=== PATIENT | female | born 1980 | race Caucasian/White ===

== ENCOUNTER → 2020-10-06 10:09 | Outpatient (CLI) | payer OTHER, SELFPAY ==
[2020-10-06 10:41] LABS: Add Manual Diff / Slide Review NO; Basophils Absolute Auto 0 /uL (0-100); Basophils Percent Auto 0.7 % (0-2); Eosinophils Absolute Auto 100 /uL (0-450); Hematocrit 42.7 % (36-46); Hemoglobin 14.5 g/dL (12.0-16.0); Lymphocytes Absolute Auto 2000 /uL (1100-4500); Lymphocytes Percent Auto 29.2 % (25-40); Mean Corpuscular Hemoglobin 30.7 PG (26-34); Mean Corpuscular Volume 90.3 fL (80-100); Monocytes Absolute Auto 600 /uL (0-900); Monocytes Percent Auto 8.2 % (3-14); Neutrophils Absolute Auto 4100 /uL (1500-7000); Neutrophils Percent Auto 60.9 % (50-75); Platelet Count 264 X10^3/uL (150-400); Red Blood Cell Count 4.73 X10^6/uL (4.0-5.2); Red Cell Distribution Width 12.8 % (11.6-14.8); White Blood Cell Count 6.8 X10^3/uL (4.5-11.0)
[2020-10-06 10:47] LABS: Hemoglobin A1C% w Est Avg Glu 6.3 % (4.0-6.0)
[2020-10-06 11:02] LABS: Alanine Aminotransferase 26 IU/L (<35); Albumin 4.4 g/dL (3.5-5.0); Albumin Globulin Ratio 1.2 (1.0-2.8); Alkaline Phosphatase 79 U/L (38-126); Aspartate Aminotransferase 24 IU/L (14-36); Bilirubin Total 0.6 mg/dL (0.2-1.3); Blood Urea Nitrogen 13 mg/dL (7-17); Calcium 10.2 mg/dL (8.4-10.2); Carbon Dioxide 27 mmol/L (22-32); Chloride 104 mmol/L (98-107); Cholesterol 233 mg/dL (140-199); Estimated Glomerular Filt Rate > 60.0 mL/min (>60); Globulin 3.6 g/dL (1.7-4.1); Glucose 122 mg/dL (70-100); HDL Cholesterol 55 mg/dL (40-60); HEMOLYSIS < 15 (0-50); LDL Cholesterol Calculated 135 mg/dL (<100); Potassium 4.3 mmol/L (3.4-5.1); Sodium 137 mmol/L (137-145); Triglycerides 217 mg/dL (35-150)
[2020-10-06 11:42] LABS: Vitamin B12 435 pg/mL (239-931)
[2020-10-06 12:09] LABS: Creatinine Urine Random 53.6 mg/dL
[2020-10-06 12:15] LABS: Microalbumin Urine Random < 0.6 mg/dL (0-1.6)
== END ==
PROVIDERS: PCP Family Medicine; Referring Provider Family Medicine; Visit Provider Family Medicine
DX: E11.9 Type 2 diabetes mellitus without complications (principal); E78.5 Hyperlipidemia, unspecified; F41.9 Anxiety disorder, unspecified; I10 Essential (primary) hypertension
CPT/HCPCS: 36415; 80053; 80061; 82043; 82570; 82607; 83036; 85025

== ENCOUNTER 2020-10-17 13:09 | Emergency (ER) | payer OTHER, SELFPAY ==
--- NOTE | 2020-10-17 13:28 | ED.CHESTPAIN ---
HPI - Chest Pain General Chief Complaint: Anxiety Stated Complaint: Anxiety, heart racing x2 weeks Time Seen by Provider: 10/17/20 13:10 Source: patient Mode of arrival: Ambulatory Limitations: no limitations History of Present Illness HPI narrative: 40-year-old female former smoker with history of hypertension presents with a chief complaint of rapid, pounding pulse for the past 2 weeks. She states that she does not have any pain, shortness of breath or dizziness. She states she just feels ?weird? and with minimal exertion her heart really begins pounding. The day the symptoms started she was started on a new blood pressure medication (amlodipine). She states that a few days ago she accidentally missed a dose of the amlodipine and she felt much better for that day. The following day she resumed her amlodipine and the symptoms started again. She denies any alcohol, street drugs. She denies nicotine or significant caffeine. She denies any other medication change. She denies recent travel, history of blood clot or cancer. MD complaint: other Onset (ago): day(s) Duration: constant Onset: during rest Pain radiation: none Relieving factors: nothing Related Data Home Medications Medication Instructions Recorded Confirmed hydroxyzine HCl 25 mg tablet 25 mg PO BEDTIME 10/06/20 10/06/20 levonorgestrel 20 mcg/24 hours (6 INTRAUTERINE 10/06/20 10/06/20 yrs) 52 mg intrauterine device Previous Rx's Medication Instructions Recorded amlodipine 2.5 mg tablet See Rx Instructions .ROUTE 10/06/20 .COMPLEX #90 tab bupropion HCl 150 mg 24 hr tablet, 150 mg PO QAM #90 tab 10/06/20 extended release metformin 500 mg tablet 500 mg PO BID #180 tab 10/06/20 omeprazole 20 mg capsule,delayed See Rx Instructions .ROUTE 10/06/20 release .COMPLEX #90 cap Allergies Allergy/AdvReac Type Severity Reaction Status Date / Time Penicillins Allergy Unknown Verified 10/06/20 09:32 Review of Systems Constitutional Constitutional: Denies chills, Denies fatigue, Denies fever(s), Denies frequent falls, Denies lethargy and Denies weakness Eyes Eyes: Denies change in vision, Denies eye discharge, Denies irritation and Denies loss of vision ENT Ears, Nose, Mouth, and Throat: Denies change in voice, Denies dizziness, Denies neck pain, Denies sore throat and Denies throat swelling Cardiovascular Cardiovascular: Denies chest pain, Reports rapid heart rate, Denies irregular heart rhythm, Denies lightheadedness, Denies palpitations, Denies dyspnea, Denies dyspnea on exertion and Denies orthopnea Respiratory Respiratory: Denies cough, Denies dyspnea, Denies dyspnea on exertion and Denies wheezing Gastrointestinal Gastrointestinal: Denies abdominal pain, Denies change in bowel habits, Denies diarrhea, Denies nausea and Denies vomiting Musculoskeletal Musculoskeletal: Denies neck pain and Denies numbness Integumentary/Breasts Skin/Breast: Denies pruritus, Denies erythema, Denies rash and Denies wounds Neurologic Neurologic: Denies behavioral changes, Denies confusion, Denies dizziness, Denies frequent falls, Denies loss of vision, Denies numbness and Denies weakness Psychiatric Psychiatric: Denies anxiety, Denies behavioral changes, Denies confusion, Denies depression, Denies homicidal ideation and Denies suicidal ideation Endocrine Endocrine: Denies fatigue, Denies flushing and Denies palpitations Hematologic/Lymphatic Hematologic/Lymphatic: Denies easy bruising Allergic/Immunologic Allergic/Immunologic: Denies urticaria, Denies throat swelling and Denies wheezing Patient History Medical History Acne Anxiety (~2019) Chicken pox Fractures (~2000) Hyperlipidemia Hypertension (~2019) Type 2 diabetes mellitus Surgical History Anesthesia History of surgery (~2000) Family History Father Diabetes mellitus Mother Cancer Grandfather Glaucoma Social History Smoking Status: Former smoker Tobacco: How many years used: 19 alcohol intake: current (1 glass wine every 6 months ) substance use type: does not use Smoking Status: Former smoker (06/14/20) Exam Narrative Exam Narrative: GENERAL: [40] year old patient appears stated age. Well-nourished, well-developed patient, in mild distress. HEAD: Atraumatic. Normocephalic. EYES: Pupils equal round and reactive. Extraocular motions intact. No scleral icterus. No injection or drainage. ENT: Nose without bleeding, purulent drainage. Throat without erythema, tonsillar hypertrophy or exudate. Airway patent. NECK: Trachea midline. Non tender CARDIOVASCULAR: Tachycardic but regular rhythm without murmurs, gallops, or rubs. RESPIRATORY: Clear to auscultation. Breath sounds equal bilaterally. No wheezes, rales, or rhonchi. GASTROINTESTINAL: Abdomen soft, non-tender, nondistended. EXTREMITIES: No edema or joint tenderness. BACK: Nontender without deformity or crepitance. No flank tenderness. NEURO: AOx3. SKIN: No rash or erythema of visible areas Initial Vital Signs Initial Vital Signs: Vital Signs Temperature 98.9 F 10/17/20 13:46 Pulse Rate 110 H 10/17/20 13:46 Respiratory Rate 18 10/17/20 13:46 Blood Pressure 189/106 H 10/17/20 13:46 Pulse Oximetry 99 10/17/20 13:46 Course Orders Ordered: ED Orders 10/17/20 13:46 Complete Blood Count AUTO DIFF Stat Comprehensive Metabolic Panel Stat D Dimer Stat Free T4, Direct Thyroxine Stat Thyroid Stimulating Hormone Stat Troponin & CK Cardiac Panel Stat 10/17/20 13:51 EKG-12 Lead Stat 10/17/20 14:37 Urine Drug Screen, Rapid Stat Discontinued Medications Lactated Ringer's (Lactated Ringers) 1,000 mls @ 1,000 mls/hr IV BOLUS ONE Stop: 10/17/20 14:34 Last Infusion: 10/17/20 15:07 Dose: 0 mls/hr Documented by: Admin: 10/17/20 13:52 Dose: 1,000 mls/hr Documented by: DARRELL Vital Signs Vital signs: Vital Signs - 8 hr 10/17/20 13:46 10/17/20 15:53 Temperature 98.9 F Pulse Rate 110 H 86 Respiratory Rate 18 15 Blood Pressure 189/106 H 149/86 H Pulse Oximetry 99 94 MDM - Chest Pain Lab Data Result diagrams: 10/17/20 13:46 10/17/20 13:46 Labs: Lab Results 10/17/20 10/17/20 10/17/20 Range/Units 13:46 13:46 13:46 WBC 9.0 (4.5-11.0) X10^3/uL RBC 4.90 (4.0-5.2) X10^6/uL Hgb 15.0 (12.0-16.0) g/dL Hct 44.0 (36-46) % MCV 89.8 (80-100) fL MCH 30.7 (26-34) PG MCHC 34.2 (30-36) % RDW 12.8 (11.6-14.8) % Plt Count 281 (150-400) X10^3/uL Neut % (Auto) 63.8 (50-75) % Lymph % (Auto) 26.3 (25-40) % [place] % (Auto) 8.0 (3-14) % Eos % (Auto) 1.0 L (2-4) % Baso % (Auto) 0.9 (0-2) % Neut # (Auto) 5800 (8190-9987) /uL Lymph # (Auto) 2400 (7595-8409) /uL [place] # (Auto) 700 (0-900) /uL Eos # (Auto) 100 (0-450) /uL Baso # (Auto) 100 (0-100) /uL D-Dimer < 200 (<230) ng/mL Sodium 140 (137-145) mmol/L Potassium 3.8 (3.4-5.1) mmol/L Chloride 104 (98-107) mmol/L Carbon Dioxide 28 (22-32) mmol/L BUN 12 (7-17) mg/dL Creatinine 0.68 (0.52-1.04) mg/dL Estimated GFR > 60.0 (>60) mL/min BUN/Creatinine Ratio 17.6 (6-22) Glucose 125 H (70-100) mg/dL Calcium 9.9 (8.4-10.2) mg/dL Total Bilirubin 0.4 (0.2-1.3) mg/dL AST 23 (14-36) IU/L ALT 26 (<35) IU/L Alkaline Phosphatase 86 (38-126) U/L Total Creatine Kinase 47 (30-135) U/L CK-MB (CK-2) TNP CK-MB (CK-2) Rel Index TNP Troponin I < 0.012 (0.01-0.034) ng/mL Total Protein 8.5 H (6.3-8.2) g/dL Albumin 4.6 (3.5-5.0) g/dL Globulin 3.9 (1.7-4.1) g/dL Albumin/Globulin Ratio 1.2 (1.0-2.8) TSH (0.47-4.68) uIU/mL Free T4 (0.78-2.19) ng/dL U Opiates 300ng/mL cut (Negative) Ur Oxycodone Screen (Negative) Urine Methadone Screen (Negative) Ur Barbiturates Screen (Negative) U Tricyclic Antidepress (Negative) Ur Phencyclidine Scrn (Negative) Ur Amphetamines Screen (Negative) U Methamphetamines Scrn (Negative) Ur MDMA Scrn (Ecstasy) (Negative) U Benzodiazepines Scrn (Negative) Urine Cocaine Screen (Negative) U Marijuana (THC) Screen (Negative) 10/17/20 10/17/20 Range/Units 13:46 14:37 WBC (4.5-11.0) X10^3/uL RBC (4.0-5.2) X10^6/uL Hgb (12.0-16.0) g/dL Hct (36-46) % MCV (80-100) fL MCH (26-34) PG MCHC (30-36) % RDW (11.6-14.8) % Plt Count (150-400) X10^3/uL Neut % (Auto) (50-75) % Lymph % (Auto) (25-40) % [place] % (Auto) (3-14) % Eos % (Auto) (2-4) % Baso % (Auto) (0-2) % Neut # (Auto) (4189-0902) /uL Lymph # (Auto) (7658-8016) /uL [place] # (Auto) (0-900) /uL Eos # (Auto) (0-450) /uL Baso # (Auto) (0-100) /uL D-Dimer (<230) ng/mL Sodium (137-145) mmol/L Potassium (3.4-5.1) mmol/L Chloride (98-107) mmol/L Carbon Dioxide (22-32) mmol/L BUN (7-17) mg/dL Creatinine (0.52-1.04) mg/dL Estimated GFR (>60) mL/min BUN/Creatinine Ratio (6-22) Glucose (70-100) mg/dL Calcium (8.4-10.2) mg/dL Total Bilirubin (0.2-1.3) mg/dL AST (14-36) IU/L ALT (<35) IU/L Alkaline Phosphatase (38-126) U/L Total Creatine Kinase (30-135) U/L CK-MB (CK-2) CK-MB (CK-2) Rel Index Troponin I (0.01-0.034) ng/mL Total Protein (6.3-8.2) g/dL Albumin (3.5-5.0) g/dL Globulin (1.7-4.1) g/dL Albumin/Globulin Ratio (1.0-2.8) TSH 2.33 (0.47-4.68) uIU/mL Free T4 1.22 (0.78-2.19) ng/dL U Opiates 300ng/mL cut Negative (Negative) Ur Oxycodone Screen Negative (Negative) Urine Methadone Screen Negative (Negative) Ur Barbiturates Screen Negative (Negative) U Tricyclic Antidepress Negative (Negative) Ur Phencyclidine Scrn Negative (Negative) Ur Amphetamines Screen Negative (Negative) U Methamphetamines Scrn Negative (Negative) Ur MDMA Scrn (Ecstasy) Negative (Negative) U Benzodiazepines Scrn Negative (Negative) Urine Cocaine Screen Negative (Negative) U Marijuana (THC) Screen Negative (Negative) Point of Care Testing Test Results Negative Urine Dip Bedside Urine Glucose Negative Bedside Urine Bilirubin - Negative Bedside Urine Ketone - Negative Urine Specific [place] 1.015 Bedside Urine pH 6.0 Bedside Urine Protein - Negative Bedside Urine Urobilinogen - Negative Bedside Urine Nitrite - Negative Bedside Urine Leukocytes - Negative Esterase Discharge Plan Departure Patient Disposition: Home Clinical Impression: Heart palpitations Instructions: DI for Palpitations Activity Restrictions/Additional Instructions: *You have been diagnosed with [palpitations, possibly due to your amlodipine] *What to do: * stop taking the amlodipine, continue taking your other medications. *Follow up with your primary care provider in 2-3 days, call for an appointment. Let them know you were seen in the Emergency Department and that we ask that you be seen in follow up *Return to ER if you should have any new, worsening or concerning symptoms Prescriptions: No Action amlodipine 2.5 mg tablet See Rx Instructions .ROUTE .COMPLEX Qty: 90 RF: 2 omeprazole 20 mg capsule,delayed release(DR/EC) See Rx Instructions .ROUTE .COMPLEX Qty: 90 RF: 2 hydroxyzine HCl 25 mg tablet 25 mg PO BEDTIME RF: 0 Mirena 20 mcg/24 hours (6 yrs) 52 mg intrauterine device intrauterine RF: 0 bupropion HCl 150 mg tablet extended release 24 hr 150 mg PO QAM Qty: 90 RF: 1 metformin 500 mg tablet 500 mg PO BID Qty: 180 RF: 3 Referrals: Woody Antonio, [Primary Care Provider] -
[2020-10-17 13:46] VITALS: BP 189/106; PULSE 110; RESP 18; TEMP 37.2; O2SAT 99; BMI 45.1
[2020-10-17] MEDS: LACTATED RINGERS 1,000 ML 1000 ML IV (13:52)
[2020-10-17 13:55] VITALS: BMI 45.1
[2020-10-17 13:55] LABS: Add Manual Diff / Slide Review NO; Basophils Absolute Auto 100 /uL (0-100); Basophils Percent Auto 0.9 % (0-2); Eosinophils Absolute Auto 100 /uL (0-450); Lymphocytes Absolute Auto 2400 /uL (1100-4500); Lymphocytes Percent Auto 26.3 % (25-40); Mean Corpuscular HGB Conc 34.2 % (30-36); Mean Corpuscular Hemoglobin 30.7 PG (26-34); Mean Corpuscular Volume 89.8 fL (80-100); Monocytes Absolute Auto 700 /uL (0-900); Neutrophils Absolute Auto 5800 /uL (1500-7000); Neutrophils Percent Auto 63.8 % (50-75); Platelet Count 281 X10^3/uL (150-400); Red Cell Distribution Width 12.8 % (11.6-14.8)
[2020-10-17 14:08] LABS: Alanine Aminotransferase 26 IU/L (<35); Albumin 4.6 g/dL (3.5-5.0); Albumin Globulin Ratio 1.2 (1.0-2.8); Alkaline Phosphatase 86 U/L (38-126); Aspartate Aminotransferase 23 IU/L (14-36); BUN Creatinine Ratio 17.6 (6-22); Bilirubin Total 0.4 mg/dL (0.2-1.3); Blood Urea Nitrogen 12 mg/dL (7-17); Calcium 9.9 mg/dL (8.4-10.2); Carbon Dioxide 28 mmol/L (22-32); Chloride 104 mmol/L (98-107); Creatine Kinase 47 U/L (30-135); Estimated Glomerular Filt Rate > 60.0 mL/min (>60); Globulin 3.9 g/dL (1.7-4.1); Glucose 125 mg/dL (70-100); HEMOLYSIS 16 (0-50); Potassium 3.8 mmol/L (3.4-5.1); Sodium 140 mmol/L (137-145); Total Protein 8.5 g/dL (6.3-8.2)
[2020-10-17 14:10] LABS: D Dimer < 200 ng/mL (<230)
[2020-10-17 14:19] LABS: Troponin I < 0.012 ng/mL (0.01-0.034)
[2020-10-17 14:52] LABS: UR Morphine/Opiate cutoff 300 Negative (Negative); Ur Creatinine Normal (Normal); Ur Specific Gravity Normal (Normal); Urine Amphetamines Negative (Negative); Urine Barbiturates Negative (Negative); Urine Benzodiazepines Negative (Negative); Urine Cocaine Negative (Negative); Urine MDMA Negative (Negative); Urine Methadone Negative (Negative); Urine Methamphetamines Negative (Negative); Urine Oxycodone Negative (Negative); Urine Phencyclidine Negative (Negative); Urine Tetrahydrocannabinol Negative (Negative); Urine Tricyclic Antidepressant Negative (Negative); Urine pH Normal (Normal)
[2020-10-17 15:26] LABS: Free T4, Direct Thyroxine 1.22 ng/dL (0.78-2.19)
[2020-10-17 15:40] LABS: Thyroid Stimulating Hormone 2.33 uIU/mL (0.47-4.68)
[2020-10-17 15:53] VITALS: BP 149/86; PULSE 86; RESP 15; O2SAT 94
== END 2020-10-17 15:56 | disposition home or self-care (01) ==
PROVIDERS: Emergency Provider Emergency Medicine; PCP Family Medicine
DX: R00.2 Palpitations (principal); I10 Essential (primary) hypertension; Z87.891 Personal history of nicotine dependence
CPT/HCPCS: 36415; 80053; 80305; 81003; 81025; 82550; 84439; 84443; 84484; 85025; 85379; 93005; 96360; 99281; 99284

== ENCOUNTER 2021-07-15 18:04 | Emergency (ER) | payer OTHER, SELFPAY ==
[2021-07-15 18:10] VITALS: BP 225/100; PULSE 98; RESP 18; TEMP 36.9; O2SAT 99; BMI 48.4
--- NOTE | 2021-07-15 19:23 | ED.GENADULT ---
HPI - General Adult General Chief complaint: Eye Problems Stated complaint: SPOT ON LEFT EYE Time Seen by Provider: 07/15/21 19:05 Source: patient Mode of arrival: Ambulatory Limitations: no limitations History of Present Illness HPI narrative: Patient is a 41-year-old female who is here for evaluation of a dark spot on her left eye. She states she noticed it yesterday when she was watching TV. It has not changed since then. She went to an outside walk-in clinic who advised that she come to the emergency department for further evaluation. She does wear glasses while she is at work. She states she is supposed to wear these at all times but only occasionally does. No prior eye surgeries. States the dark spot does seem to be isolated to her left eye. This is very small. She states that does follow her visual sky when she looks up and down into the sides. She has no headache. No other eye symptoms. No pain in her eyes. No headache. No chest pain or palpitations. Related Data Home Medications Medication Instructions Recorded Confirmed levonorgestrel 20 mcg/24 hours (6 INTRAUTERINE 10/06/20 05/23/21 yrs) 52 mg intrauterine device (Mirena) hydroxyzine HCl 25 mg tablet 25 mg PO BEDTIME PRN 12/20/20 05/23/21 Previous Rx's Medication Instructions Recorded metformin 500 mg tablet 500 mg PO BID #180 tab 10/06/20 omeprazole 20 mg capsule,delayed See Rx Instructions .ROUTE 10/06/20 release .COMPLEX #90 cap glucometer #1 ea 11/01/20 metoprolol succinate 25 mg See Rx Instructions .ROUTE 12/15/20 tablet,extended release 24 hr .COMPLEX #90 tab clindamycin phosphate 1 % lotion 1 applic TOPICAL BID #60 ml 12/20/20 (Cleocin T) blood sugar diagnostic (FreeStyle See Rx Instructions .ROUTE 01/26/21 Lite Strips) .COMPLEX #300 strip tretinoin 0.025 % topical cream 1 applic TOPICAL BEDTIME #45 g 05/23/21 (Retin-A) lancets 28 gauge (FreeStyle See Rx Instructions .ROUTE 06/10/21 Lancets) .COMPLEX #300 ea Allergies Allergy/AdvReac Type Severity Reaction Status Date / Time Penicillins Allergy Unknown Verified 07/15/21 18:14 amlodipine AdvReac Severe Heart Verified 07/15/21 18:14 palpitations lisinopril AdvReac Severe cough Verified 07/15/21 18:14 Review of Systems Constitutional Constitutional: Reports as per HPI and Reports system reviewed and no additional complaints, except as documented Eyes Eyes: Reports as per HPI and Reports system reviewed and no additional complaints, except as documented ENT Ears, Nose, Mouth, and Throat: Reports system reviewed and no additional complaints, except as documented and Reports as per HPI Cardiovascular Cardiovascular: Reports system reviewed and no additional complaints, except as documented Respiratory Respiratory: Reports system reviewed and no additional complaints, except as documented Gastrointestinal Gastrointestinal: Reports system reviewed and no additional complaints, except as documented Integumentary/Breasts Skin/Breast: Reports system reviewed and no additional complaints, except as documented Neurologic Neurologic: Reports system reviewed and no additional complaints, except as documented and Reports as per HPI Hematologic/Lymphatic On Anticoagulants: No Patient History Medical History Acne Acne vulgaris Anxiety (~2019) Chicken pox Fractures (~2000) History of non anemic vitamin B12 deficiency Hyperlipidemia Hypertension (~2019) Type 2 diabetes mellitus Surgical History Anesthesia History of surgery (~2000) Family History Father Diabetes mellitus Mother Cancer Grandfather Glaucoma Social History Smoking Status: Former smoker Tobacco: How many years used: 19 alcohol intake: current (1 glass wine every 6 months ) substance use type: does not use Smoking Status: Former smoker alcohol intake frequency: holidays/special occasions only Substance Use Type: does not use Exam Initial Vital Signs Initial Vital Signs: Vital Signs Temperature 98.4 F 07/15/21 18:10 Pulse Rate 98 H 07/15/21 18:10 Respiratory Rate 18 07/15/21 18:10 Blood Pressure 225/100 H 07/15/21 18:10 Pulse Oximetry 99 07/15/21 18:10 Const General: cooperative, healthy appearing and comfortable [facility] Head: normal to inspection and normocephalic Ears: hearing grossly normal bilaterally Face and sinus: normal facial exam Mouth: oral mucosae normal Eyes General: appearance normal, both eyes and all related structures Visual Sky: normal visual sky by confrontation Alignment and Position: alignment normal Periorbital: periorbital findings normal Eyelids: eyelids normal Conjunctivae: conjunctivae normal Sclera: sclerae normal Pupils: PERRL EOM: EOM intact bilaterally Resp Effort & Inspection: normal respiratory effort Auscultation: clear to auscultation bilaterally Cardio Rate: regular rate Back/Spine/Pelvis Back: normal to inspection Neuro General: patient alert, patient awake, patient oriented x3 and moves all extremities Cranial Nerves: CN's II-XI intact bilaterally Cognition: normal cognition Extrem General: normal to inspection and capillary refill normal Psych Appearance: grossly normal Course Vital Signs Vital signs: Vital Signs - 8 hr 07/15/21 18:10 Temperature 98.4 F Pulse Rate 98 H Respiratory Rate 18 Blood Pressure 225/100 H Pulse Oximetry 99 Medical Decision Making MDM Narrative Medical decision making narrative: Patient's visual acuity is baseline for her. She noticed the spot in her left eye yesterday and has not changed since then. He does seem to be isolated to her left eye. Does follow her when she changes her visual field. She has no other neurologic symptoms. Low suspicion for retinal detachment. This could potentially be a vitreous detachment. Low suspicion for glaucoma based on her presentation today. There is no foreign body noted on the exam. Low suspicion for corneal abrasion. Visual acuity is noted. Plan will be is for her to contact a cytotechnologist/cytology supervisor/stone polisher hand on Sunday for dilated eye exam. I do not feel that this needs to be done emergently based on her presentation today. She was given strict return precautions and follow-up instructions. She expressed understanding and agreement. Discharge Plan Departure Patient Disposition: Home Clinical Impression: Vision disturbance, Hypertension Instructions: DI for Visual Field Disturbances Activity Restrictions/Additional Instructions: I recommend that on Sunday you contact either the ophthalmology department here at the hospital at the number provided below or a cytotechnologist/cytology supervisor of your choice. Return to the emergency department for any new or worsening symptoms like we discussed. Prescriptions: No Action omeprazole 20 mg capsule,delayed release(DR/EC) See Rx Instructions .ROUTE .COMPLEX Qty: 90 RF: 2 (DME) glucometer See Rx Instructions .Route .MEDSUPPLY Qty: 1 RF: 0 metoprolol succinate 25 mg tablet extended release 24 hr See Rx Instructions .ROUTE .COMPLEX Qty: 90 RF: 2 FreeStyle Lite Strips Strip See Rx Instructions .ROUTE .COMPLEX Qty: 300 RF: 3 lancets [FreeStyle Lancets] 28 gauge misc See Rx Instructions .ROUTE .COMPLEX Qty: 300 RF: 3 Mirena 20 mcg/24 hours (6 yrs) 52 mg intrauterine device intrauterine RF: 0 metformin 500 mg tablet 500 mg PO BID Qty: 180 RF: 3 hydroxyzine HCl 25 mg tablet 25 mg PO BEDTIME PRN (Reason: anxiety) RF: 0 tretinoin [Retin-A] 0.025 % cream 1 applic topical BEDTIME Qty: 45 RF: 3 clindamycin phosphate [Cleocin T] 1 % lotion 1 applic topical BID Qty: 60 RF: 1 Referrals: Marcin Castro MD [Physician] - Woody Antonio DO [Primary Care Provider] -
[2021-07-15 19:33] VITALS: BP 166/96; PULSE 97; RESP 20; O2SAT 98
== END 2021-07-15 19:35 | disposition home or self-care (01) ==
PROVIDERS: Emergency Provider Emergency Medicine; PCP Family Medicine
DX: H53.9 Unspecified visual disturbance (principal); I10 Essential (primary) hypertension
CPT/HCPCS: 99281

== ENCOUNTER → 2021-07-25 08:04 | Outpatient (CLI) | payer OTHER, SELFPAY ==
[2021-07-25 09:09] LABS: Hemoglobin A1C% w Est Avg Glu 6.9 % (4.0-6.0)
[2021-07-25 09:18] LABS: Alanine Aminotransferase 78 IU/L (<35); Albumin 4.3 g/dL (3.5-5.0); Albumin Globulin Ratio 1.4 (1.0-2.8); Alkaline Phosphatase 68 U/L (38-126); Aspartate Aminotransferase 49 IU/L (14-36); BUN Creatinine Ratio 25.4 (6-22); Bilirubin Total 0.7 mg/dL (0.2-1.3); Blood Urea Nitrogen 15 mg/dL (7-17); Calcium 9.6 mg/dL (8.4-10.2); Carbon Dioxide 26 mmol/L (22-32); Chloride 104 mmol/L (98-107); Estimated Glomerular Filt Rate > 60.0 mL/min (>60); Glucose 133 mg/dL (70-100); HEMOLYSIS < 15 (0-50); Potassium 4.5 mmol/L (3.4-5.1); Sodium 139 mmol/L (137-145); Total Protein 7.3 g/dL (6.3-8.2)
[2021-07-25 09:50] LABS: Cortisol AM (Before 10AM) 10.9 ug/dL (4.46-22.7)
[2021-07-25 09:51] LABS: TSH w/ Reflex to FT4 1.51 uIU/mL (0.47-4.68)
[2021-07-25 10:09] LABS: Vitamin B12 Reflex MMA if <400 > 1000 pg/mL (239-931)
== END ==
PROVIDERS: PCP Family Medicine; Referring Provider Family Medicine; Visit Provider Family Medicine
DX: R00.2 Palpitations (principal); Z86.39 Personal history of other endocrine, nutritional and metabolic disease; I10 Essential (primary) hypertension
CPT/HCPCS: 36415; 80053; 82533; 82607; 83036; 84443

== ENCOUNTER → 2021-08-04 17:59 | Outpatient (CLI) | payer OTHER, SELFPAY ==
--- NOTE | 2021-08-04 18:02 | DI.MG.S_ITS ---
BILATERAL DIGITAL SCREENING MAMMOGRAM 3D/2D WITH CAD: 08/04/2021 CLINICAL: Routine screening. Baseline exam. No prior exams were available for comparison. The tissue of both breasts is heterogeneously dense. This may lower the sensitivity of mammography. Current study was also evaluated with a Computer Aided Detection (CAD) system. No significant masses, calcifications, or other findings are seen in either breast. IMPRESSION: NEGATIVE There is no mammographic evidence of malignancy. A 1 year screening mammogram is recommended. This exam was interpreted at Station ID: [id number]. NOTE: For mammograms, a report in lay terms will be sent to the patient. Approximately 15% of breast malignancies will not be visualized mammographically. In the management of a palpable breast mass, a negative mammogram must not discourage biopsy of a clinically suspicious lesion. Electronically Signed By: Herb lopez/daniel:08/05/2021 08:13:42 letter sent: Normal Exam ACR BI-RADS Category 1: Negative 3341F
== END ==
PROVIDERS: PCP Family Medicine; Referring Provider Family Medicine; Visit Provider Family Medicine
DX: Z12.31 Encounter for screening mammogram for malignant neoplasm of breast (principal)
CPT/HCPCS: 77063; 77067

== ENCOUNTER → 2021-08-09 16:32 | Outpatient (CLI) | payer OTHER, SELFPAY ==
[2021-08-12 07:43] LABS: Almond IgE <0.10 kU/L (Class 0); Cashew Nut IgE <0.10 kU/L (Class 0); Codfish Allergy IgE < 0.10 kU/L (Class 0); Egg White IgE <0.10 kU/L (Class 0); Hazelnut IgE <0.10 kU/L (Class 0); Milk IgE <0.10 kU/L (Class 0); Peanut IgE 0.14 kU/L (Class 0/I); Salmon Allergy IgE < 0.10 kU/L (Class 0); Scallop Allergy IgE < 0.10 kU/L (Class 0); Sesame seed Allergy IgE < 0.10 kU/L (Class 0); Shrimp IgE <0.10 kU/L (Class 0); Soybean IgE <0.10 kU/L (Class 0); Tuna Allergy IgE < 0.10 kU/L (Class 0); Walnut IgE <0.10 kU/L (Class 0); Wheat Allergy IgE < 0.10 kU/L (Class 0)
== END ==
PROVIDERS: PCP Family Medicine; Referring Provider Family Medicine; Visit Provider Family Medicine
DX: E11.9 Type 2 diabetes mellitus without complications (principal); E78.2 Mixed hyperlipidemia; I10 Essential (primary) hypertension
CPT/HCPCS: 36415; 86003

== ENCOUNTER → 2021-08-15 07:58 | Outpatient (CLI) | payer OTHER, SELFPAY ==
--- NOTE | 2021-08-15 07:59 | DI.US.S_ITS ---
PROCEDURE: US PELVIC COMPLETE INDICATIONS: METRORRHAGIA TECHNIQUE: Real-time scanning was performed of the pelvic organs, with image documentation. Additional endovaginal scanning was necessary due to incomplete visualization of the adnexal and endometrial structures by transabdominal scanning. COMPARISON: None. FINDINGS: Uterus: The uterus is anteverted , demonstrates homogeneous echotexture, and measures 7.7 x 4.2 x 3.8 cm The endometrium measures 5.8 mm in combined thickness. An intrauterine device is seen, extending into the fundal region. Hypoechoic lesions in the cervix, compatible with nabothian cysts. Ovaries: The right kidney measures 2.8 x 1.9 x 1.5 cm. Greater than or equal to 5 follicles visualized. The left ovary measures 3 x 1.9 x 2.1 cm. Greater than or equal to 9 follicles visualized. An anechoic, paraovarian lesion is seen, measuring up to 8.7 mm, which may reflect a cyst. Other: No pathologic free abdominal or pelvic fluid. IMPRESSION: No significant abnormality. Dictated by: Shlomo Alexander M.D. on 08/15/2021 at 9:05 Approved by: Shlomo Alexander M.D. on 08/15/2021 at 9:20
== END ==
PROVIDERS: PCP Family Medicine; Referring Provider Obstetrics & Gynecology; Visit Provider Obstetrics & Gynecology
DX: N92.1 Excessive and frequent menstruation with irregular cycle (principal)
CPT/HCPCS: 76830; 76856

== ENCOUNTER → 2021-12-17 10:29 | Outpatient (CLI) | payer OTHER, SELFPAY ==
[2021-12-17 11:45] LABS: Alanine Aminotransferase 33 IU/L (<35); Albumin 4.3 g/dL (3.5-5.0); Albumin Globulin Ratio 1.3 (1.0-2.8); Alkaline Phosphatase 64 U/L (38-126); Aspartate Aminotransferase 27 IU/L (14-36); BUN Creatinine Ratio 22.6 (6-22); Bilirubin Total 0.8 mg/dL (0.2-1.3); Blood Urea Nitrogen 14 mg/dL (7-17); Calcium 9.9 mg/dL (8.4-10.2); Carbon Dioxide 30 mmol/L (22-32); Chloride 103 mmol/L (98-107); Cholesterol 208 mg/dL (140-199); Estimated Glomerular Filt Rate > 60.0 mL/min (>60); Globulin 3.2 g/dL (1.7-4.1); Glucose 109 mg/dL (70-100); HDL Cholesterol 48 mg/dL (40-60); HEMOLYSIS < 15 (0-50); LDL Cholesterol Calculated 133 mg/dL (<100); Potassium 4.5 mmol/L (3.4-5.1); Sodium 136 mmol/L (137-145); Total Protein 7.5 g/dL (6.3-8.2); Triglycerides 134 mg/dL (35-150)
[2021-12-17 11:51] LABS: Hemoglobin A1C% w Est Avg Glu 6.4 % (4.0-6.0)
== END ==
PROVIDERS: PCP Family Medicine; Referring Provider Family Medicine; Visit Provider Family Medicine
DX: E11.9 Type 2 diabetes mellitus without complications; E78.5 Hyperlipidemia, unspecified; I10 Essential (primary) hypertension
CPT/HCPCS: 36415; 80053; 80061; 83036

== ENCOUNTER → 2022-08-08 16:46 | Outpatient (CLI) | payer OTHER, SELFPAY ==
--- NOTE | 2022-08-08 | DI.MG.S_ITS ---
BILATERAL DIGITAL SCREENING MAMMOGRAM 3D/2D WITH CAD: 08/08/2022 CLINICAL: Routine screening. Comparison is made to exam dated: 08/04/2021 mammogram - . There are scattered areas of fibroglandular density in both breasts (category b / 25%-50% glandular tissue). Current study was also evaluated with a Computer Aided Detection (CAD) system. No significant masses, calcifications, or other findings are seen in either breast. There has been no significant interval change. IMPRESSION: NEGATIVE There is no mammographic evidence of malignancy. A 1 year screening mammogram is recommended. Based on the Tyrer Cuzick model (a risk assessment model) the patient's lifetime risk is 9.5% and her 10 year risk is 1.4%. According to the ACR, ACS, and NCCN guidelines, an annual breast MRI exam along with mammogram is recommended if the patient's lifetime risk is 20% or greater. This exam was interpreted at Station ID: [id number]. NOTE: For mammograms, a report in lay terms will be sent to the patient. Approximately 15% of breast malignancies will not be visualized mammographically. In the management of a palpable breast mass, a negative mammogram must not discourage biopsy of a clinically suspicious lesion. Electronically Signed By: Wanda fisher/daniel:08/09/2022 13:15:48 letter sent: Normal Exam ACR BI-RADS Category 1: Negative [id number]
== END ==
PROVIDERS: PCP Family Medicine; Referring Provider Family Medicine; Visit Provider Family Medicine
DX: Z12.31 Encounter for screening mammogram for malignant neoplasm of breast (principal)
CPT/HCPCS: 77063; 77067

== ENCOUNTER → 2022-09-30 08:49 | Outpatient (CLI) | payer OTHER, SELFPAY ==
[2022-09-30 10:16] LABS: Add Manual Diff / Slide Review NO; Basophils Absolute Auto 0 /uL (0-100); Basophils Percent Auto 0.5 % (0-2); Eosinophils Absolute Auto 100 /uL (0-450); Eosinophils Percent Auto 1.8 % (2-4); Hematocrit 38.7 % (36-46); Hemoglobin 13.2 g/dL (12.0-16.0); Lymphocytes Absolute Auto 2500 /uL (1100-4500); Lymphocytes Percent Auto 34.1 % (25-40); Mean Corpuscular HGB Conc 34.1 % (30-36); Mean Corpuscular Hemoglobin 30.2 PG (26-34); Mean Corpuscular Volume 88.6 fL (80-100); Monocytes Absolute Auto 600 /uL (0-900); Monocytes Percent Auto 8.5 % (3-14); Neutrophils Absolute Auto 4100 /uL (1500-7000); Neutrophils Percent Auto 55.1 % (50-75); Platelet Count 236 X10^3/uL (150-400); Red Blood Cell Count 4.37 X10^6/uL (4.0-5.2); Red Cell Distribution Width 13.1 % (11.6-14.8); White Blood Cell Count 7.4 X10^3/uL (4.5-11.0)
[2022-09-30 10:47] LABS: Alanine Aminotransferase 88 IU/L (<35); Albumin Globulin Ratio 1.3 (1.0-2.8); Alkaline Phosphatase 73 U/L (38-126); Aspartate Aminotransferase 56 IU/L (14-36); Bilirubin Total 0.5 mg/dL (0.2-1.3); Blood Urea Nitrogen 16 mg/dL (7-17); Calcium 9.2 mg/dL (8.4-10.2); Carbon Dioxide 27 mmol/L (22-32); Chloride 103 mmol/L (98-107); Cholesterol 165 mg/dL (140-199); Estimated Glomerular Filt Rate > 60 mL/min (>60); Globulin 3.1 g/dL (1.7-4.1); Glucose 129 mg/dL (70-100); HDL Cholesterol 55 mg/dL (40-60); HEMOLYSIS < 15 (0-50); LDL Cholesterol Calculated 86 mg/dL (<100); Potassium 4.3 mmol/L (3.4-5.1); Sodium 138 mmol/L (137-145); Total Protein 7.1 g/dL (6.3-8.2); Triglycerides 122 mg/dL (35-150)
[2022-09-30 11:38] LABS: TSH w/ Reflex to FT4 1.56 uIU/mL (0.47-4.68)
== END ==
PROVIDERS: PCP Family Medicine; Referring Provider Family Medicine; Visit Provider Family Medicine
DX: E11.9 Type 2 diabetes mellitus without complications (principal); E78.5 Hyperlipidemia, unspecified; I10 Essential (primary) hypertension
CPT/HCPCS: 36415; 80053; 80061; 83036; 84443; 85025

== ENCOUNTER → 2022-12-05 14:54 | Outpatient (CLI) | payer OTHER, SELFPAY ==
--- NOTE | 2022-12-14 15:40 | DIAB.MNT ---
Initial Diabetes Medical Nutrition Therapy Assessment Name: Katherine Gomez ([place]) Date: 12/05/22 Time: 340-5p Dx: Type II Diabetes Provider: Paco Wallace presents for initial DM visit. PMH of Dm for 2 years with +paternal FH of DM. Reports her main concerns today are how she can address her diabetes with a plant-based diet and how to take care of her feet. Endorses vegan diet over the last 3 weeks. Curious what nutrients she may be missing. She is takin a MVI, [place] 3, and B12 supplement. Endorses improved energy since changing diet, which could also correlate with improved glycemic management. States she has not had anymore spikes of 180+ (highest 215 or 220) since diet changes. Also endorses fasting fridays - 7 pm to 7 pm sunday with her .? Had a bleed in eye 1 yr ago, which may have been related to HTN per report. No other eye issues since. No dental visit in 4 years. Endorses cracked skin on feet. Unsure how to care for feet with DM. Uses odalis to help plan meals. Wondering what foods she should eventually add back, ie fish or steak Food sensitivities: egg (diarrhea), high fat milk (diarrhea), shellfish (itchy throat).? Appointment with Paco for f/u on December 16. Diet Recall: (5:30 am) 16-20 oz black coffee?+/- oatmilk. B: (7:30 am) 1/3 cup low sugar granola with 1/3 cup berries, 1/3 cup oat milk. S: (7:40 - 10:30 am) piece of fruit (orange, apple, banana, kiwi) L: (11 am) 1/3-1/2 cup beans, non-starch veggies (corn or peas),?+/- 1/4-1/3 cup quinoa, avocado, spices. S: (3:30-4:00 pm) 1 serving MG chip with 1 single package hummus. S: (5:00-9:30 pm) 1 fruit? Fluid: 90-120 oz water/day, kombucha. Used to drink limited amount of water.? Anthropometrics: Ht: 66 Wt: 300# reported Weight history: Endorses -11-12# over the last 3/5 weeks with diet changes. Physical Activity: Less last couple of weeks. Sep-Oct: 1 mile/day. Nov-Jun: gym 3x/week wt lifting.? Self-Monitoring Blood Glucose: Checking 4-5x per day. FBG went from 125 to 109 more recently per report. 12/01 was a fasting day, which is represented below with BG <100 mid day. Date Pre Post Pre Post Pre Post HS 11/28 98 11/29 102 110 108 11/30 102 12/01 108 88 87 12/02 109 12/03 114 122 12/05 109 105 Diabetes Medications: Metformin 500 mg BID Ozempic 1mg per week Pertinent Labs: HgA1c 7% 09/2022 Past Medical History: (Last Updated 10/06/22 @ 15:48 by Woody Antonio DO) Acne Acne vulgaris Anxiety (~2019) Chicken pox Elevated liver function tests Fractures (~2000) Left leg History of non anemic vitamin B12 deficiency Hyperlipidemia Hypertension (~2019) Irregular intermenstrual bleeding Polycystic ovarian syndrome Type 2 diabetes mellitus Nutrition Rx: Carbohydrates: Meal:30-45g Snack:15-30g *Recs based on 45% REE and current intake Nutrition Diagnosis: - Food and nutrition related knowledge deficit r/t no previous DSME/MNT aeb pt report - Inconsistent protein intake r/t knowledge deficit aeb diet recall Intervention: This participant was very receptive. Provided appropriate educational handouts. Discussed the following topics: Completed intake assessment. Discussed barriers to care. Pathophysiology of T2DM Self monitoring recommendations DM risk reduction: foot care, dentist Plate Method, impact of macronutrients on blood sugar, meal timing, carbohydrate counting, pairing macronutrients and spreading out carbohydrates for better blood glucose management Recommended servings for carbohydrates at meals and snacks Role of physical activity Created SMART goals for patient self-care and success. Goals: Call dentist for appt Lotion feet (not between toes) Add protein to snacks Follow-up: DARRIUS AGUIRRE follow-up in 3-4 weeks Kathryn Casey RDN, [facility] Certified Diabetes Care and Health Evaluator P: [phone] Thank you for this referral
== END ==
PROVIDERS: Absent Provider Family Medicine; Family Provider Family Medicine; PCP Family Medicine; Referring Provider Family Medicine; Visit Provider Family Medicine
DX: E11.9 Type 2 diabetes mellitus without complications (principal); Z79.84 Long term (current) use of oral hypoglycemic drugs; Z79.85 Long-term (current) use of injectable non-insulin antidiabetic drugs; Z71.3 Dietary counseling and surveillance; E78.2 Mixed hyperlipidemia; R79.89 Other specified abnormal findings of blood chemistry; I10 Essential (primary) hypertension
CPT/HCPCS: 97802

== ENCOUNTER → 2022-12-15 15:16 | Outpatient (CLI) | payer OTHER, SELFPAY ==
[2022-12-15 15:55] LABS: Hemoglobin A1C% w Est Avg Glu 6.2 % (4.0-6.0)
[2022-12-15 16:25] LABS: Alanine Aminotransferase 75 IU/L (<35); Albumin 4.5 g/dL (3.5-5.0); Albumin Globulin Ratio 1.3 (1.0-2.8); Alkaline Phosphatase 80 U/L (38-126); Aspartate Aminotransferase 52 IU/L (14-36); BUN Creatinine Ratio 16.1 (6-22); Blood Urea Nitrogen 9 mg/dL (7-17); Calcium 9.4 mg/dL (8.4-10.2); Carbon Dioxide 27 mmol/L (22-32); Chloride 98 mmol/L (98-107); Estimated Glomerular Filt Rate > 60 mL/min (>60); Globulin 3.6 g/dL (1.7-4.1); Glucose 93 mg/dL (70-100); HEMOLYSIS < 15 (0-50); Potassium 3.9 mmol/L (3.4-5.1); Sodium 135 mmol/L (137-145); Total Protein 8.1 g/dL (6.3-8.2)
[2022-12-15 16:54] LABS: TSH w/ Reflex to FT4 1.53 uIU/mL (0.47-4.68)
== END ==
PROVIDERS: Family Provider Family Medicine; PCP Family Medicine; Referring Provider Family Medicine; Visit Provider Family Medicine
DX: E11.9 Type 2 diabetes mellitus without complications (principal); E78.2 Mixed hyperlipidemia; I10 Essential (primary) hypertension; R79.89 Other specified abnormal findings of blood chemistry
CPT/HCPCS: 36415; 80053; 83036; 84443

== ENCOUNTER → 2023-01-05 15:47 | Outpatient (CLI) | payer OTHER, SELFPAY ==
--- NOTE | 2023-01-18 13:31 | DIAB.MNTFU ---
Follow-up Diabetes Medical Nutrition Therapy Assessment Name: Katherine Gomez ([place]) Date: 01/05/23 Time: 405-505p Dx: Type II Diabetes [place] presents for Dm follow-up. Reports continued success with diet. Recent HgA1c down to 6.2%. States there are some foods she misses, ie cheese. Also, wondering about processed foods she is currently consuming, ie veggie burgers and vegan cheeses. States her goal is to stay on this plant based diet at [facility] until 01/08 and then re evaluate adding some foods. Getting more than rec amt of omegas from supplement. Looking for a new dentist. Putting lotion on feet. Added protein to snacks Considering adding fish once per week. Questions regarding CGM today. Anthropometrics: Ht: 66 Wt: 280# reported Weight history: Down from previous 300# Physical Activity: walking 10-15 min 3x per week. Averaging 5,000 steps per day. Barrier reported is that he does not ant to exercise and she wants to spend more time together. Self-Monitoring Blood Glucose: Reports FBG 99-110mg/dl and most pc readings <140mg/dl often 100-125mg/dl. Reports highest reading of 157mg/dl after having cookies. Also endorse one low of 67mg/dl on a fasting sunday which she partakes in with her weekly. Treated low with breaking her fast for a snack. Diabetes Medications: Metformin 500 mg BID Ozempic 1mg per week Pertinent Labs: HgA1c 7% 09/2022; 6.2% 12/2022 Past Medical History: (Last Reviewed 12/19/22 @ 15:23 by Woody Antonio DO) Acne Acne vulgaris Anxiety (~2019) Chicken pox Eczema Elevated liver function tests Fractures (~2000) Left leg History of non anemic vitamin B12 deficiency Hyperlipidemia Hypertension (~2019) Irregular intermenstrual bleeding Polycystic ovarian syndrome Type 2 diabetes mellitus Nutrition Rx: Carbohydrates: Meal:30-45g Snack:15-30g *Recs based on 45% REE and current intake Nutrition Diagnosis: - Food and nutrition related knowledge deficit r/t no previous DSME/MNT aeb pt report- improved - Inconsistent protein intake r/t knowledge deficit aeb diet recall - improved - Predicted excessive ALA intake r/t supplementation aeb pt report and supplement label Intervention: This participant was very receptive. Provided appropriate educational handouts. Discussed the following topics: Blood sugar review and trends. Heart health nutrition: fats, fiber Making this diet more sustainable for her Supplement education and recs on ALA/Omegas Processed foods vs whole foods CGM education Physical activity plan and progress Created SMART goals for patient self-care and success. Goals: Call dentist for appt-in progress Lotion feet (not between toes)- met Add protein to snacks - met Incorporate fish on Sundays- new Cut ALA supplement in half and don't take on Sundays with fish for dinner- new Follow-up: DARRIUS AGUIRRE follow-up prn. Madison is managing her Dm very well. Encouraged her to call or message with any questions or follow-up needs. She agreed. Kathryn Casey RDN, [facility] Certified Diabetes Care and Unclaimed Property Manager P: [phone] Thank you for this referral
== END ==
PROVIDERS: Family Provider Family Medicine; PCP Family Medicine; Referring Provider Family Medicine; Visit Provider Family Medicine
DX: E11.9 Type 2 diabetes mellitus without complications (principal); Z79.84 Long term (current) use of oral hypoglycemic drugs; Z79.85 Long-term (current) use of injectable non-insulin antidiabetic drugs; Z71.3 Dietary counseling and surveillance
CPT/HCPCS: 97803

== ENCOUNTER → 2023-05-05 11:53 | Outpatient (CLI) | payer OTHER, SELFPAY ==
[2023-05-05 12:39] LABS: Alanine Aminotransferase 45 IU/L (<35); Albumin 4.1 g/dL (3.5-5.0); Albumin Globulin Ratio 1.3 (1.0-2.8); Alkaline Phosphatase 67 U/L (38-126); Aspartate Aminotransferase 33 IU/L (14-36); BUN Creatinine Ratio 27.7 (6-22); Bilirubin Total 0.6 mg/dL (0.2-1.3); Blood Urea Nitrogen 18 mg/dL (7-17); Calcium 10.1 mg/dL (8.4-10.2); Carbon Dioxide 29 mmol/L (22-32); Chloride 104 mmol/L (98-107); Estimated Glomerular Filt Rate > 60 mL/min (>60); Globulin 3.2 g/dL (1.7-4.1); Glucose 109 mg/dL (70-100); HEMOLYSIS < 15 (0-50); Sodium 138 mmol/L (137-145); Total Protein 7.3 g/dL (6.3-8.2)
[2023-05-07 16:16] LABS: Creatinine Urine Random 44.3 mg/dL; Microalbumin Urine Random < 0.6 mg/dL (0-1.6)
[2023-05-08 05:50] LABS: Labcorp Hemoglobin (Hb) A1c 5.9 % (4.8-5.6)
== END ==
PROVIDERS: Family Provider Family Medicine; PCP Family Medicine; Referring Provider Family Medicine; Visit Provider Family Medicine
DX: E11.9 Type 2 diabetes mellitus without complications (principal); I10 Essential (primary) hypertension; E78.2 Mixed hyperlipidemia; R79.89 Other specified abnormal findings of blood chemistry
CPT/HCPCS: 36415; 80053; 82043; 82570; 83036

== ENCOUNTER → 2023-08-08 15:59 | Outpatient (CLI) | payer OTHER, SELFPAY ==
--- NOTE | 2023-08-08 16:01 | DI.MG.S_ITS ---
BILATERAL DIGITAL SCREENING MAMMOGRAM 3D/2D WITH CAD: 08/08/2023 CLINICAL: Routine screening. Comparison is made to exams dated: 08/08/2022 mammogram and 08/04/2021 mammogram - [facility]. There are scattered areas of fibroglandular density in both breasts (category b / 25%-50% glandular tissue). Current study was also evaluated with a Computer Aided Detection (CAD) system. No significant masses, calcifications, or other findings are seen in either breast. There has been no significant interval change. IMPRESSION: NEGATIVE There is no mammographic evidence of malignancy. A 1 year screening mammogram is recommended. Based on the Tyrer Cuzick model (a risk assessment model) the patient's lifetime risk is 9.5% and her 10 year risk is 1.5%. According to the ACR, ACS, and NCCN guidelines, an annual breast MRI exam along with mammogram is recommended if the patient's lifetime risk is 20% or greater. This exam was interpreted at Station ID: [id number]. NOTE: For mammograms, a report in lay terms will be sent to the patient. Approximately 15% of breast malignancies will not be visualized mammographically. In the management of a palpable breast mass, a negative mammogram must not discourage biopsy of a clinically suspicious lesion. Electronically Signed By: Nick chino/daniel:08/09/2023 10:47:07 letter sent: Normal Exam ACR BI-RADS Category 1: Negative 3341F
== END ==
PROVIDERS: Family Provider Family Medicine; PCP Family Medicine; Referring Provider Family Medicine; Visit Provider Family Medicine
DX: Z12.31 Encounter for screening mammogram for malignant neoplasm of breast (principal)
CPT/HCPCS: 77063; 77067

== ENCOUNTER → 2023-12-22 12:09 | Outpatient (CLI) | payer OTHER, SELFPAY ==
[2023-12-22 12:52] LABS: Alanine Aminotransferase 56 IU/L (<35); Albumin 4.4 g/dL (3.5-5.0); Albumin Globulin Ratio 1.3 (1.0-2.8); Alkaline Phosphatase 73 U/L (38-126); Aspartate Aminotransferase 40 IU/L (14-36); BUN Creatinine Ratio 18.5 (6-22); Bilirubin Total 0.8 mg/dL (0.2-1.3); Blood Urea Nitrogen 12 mg/dL (7-17); Calcium 10.5 mg/dL (8.4-10.2); Carbon Dioxide 29 mmol/L (22-32); Chloride 106 mmol/L (98-107); Cholesterol 160 mg/dL (140-199); Estimated Glomerular Filt Rate > 60 mL/min (>60); Globulin 3.4 g/dL (1.7-4.1); Glucose 113 mg/dL (70-100); HDL Cholesterol 58 mg/dL (40-60); HEMOLYSIS < 15 (0-50); LDL Cholesterol Calculated 83 mg/dL (<100); Potassium 4.3 mmol/L (3.4-5.1); Sodium 140 mmol/L (137-145); Total Protein 7.8 g/dL (6.3-8.2); Triglycerides 96 mg/dL (35-150)
[2023-12-22 13:22] LABS: TSH w/ Reflex to FT4 1.34 uIU/mL (0.47-4.68)
== END ==
PROVIDERS: Family Provider Family Medicine; PCP Family Medicine; Referring Provider Family Medicine; Visit Provider Family Medicine
DX: E11.319 Type 2 diabetes mellitus with unspecified diabetic retinopathy without macular edema (principal)
CPT/HCPCS: 36415; 80053; 80061; 83036; 84443

== ENCOUNTER → 2024-06-07 08:46 | Outpatient (CLI) | payer OTHER, SELFPAY ==
[2024-06-07 10:09] LABS: Alanine Aminotransferase 47 IU/L (<35); Albumin Globulin Ratio 1.3 (1.0-2.8); Alkaline Phosphatase 78 U/L (38-126); Aspartate Aminotransferase 30 IU/L (14-36); BUN Creatinine Ratio 26.1 (6-22); Bilirubin Total 0.5 mg/dL (0.2-1.3); Blood Urea Nitrogen 18 mg/dL (7-17); Calcium 10.8 mg/dL (8.4-10.2); Carbon Dioxide 27 mmol/L (22-32); Chloride 103 mmol/L (98-107); Cholesterol 162 mg/dL (140-199); Estimated Glomerular Filt Rate > 60 mL/min (>60); Globulin 3.1 g/dL (1.7-4.1); Glucose 118 mg/dL (70-100); HDL Cholesterol 61 mg/dL (40-60); HEMOLYSIS < 15 (0-50); LDL Cholesterol Calculated 82 mg/dL (<100); Sodium 136 mmol/L (137-145); Total Protein 7.1 g/dL (6.3-8.2); Triglycerides 95 mg/dL (35-150)
[2024-06-07 10:39] LABS: TSH w/ Reflex to FT4 1.68 uIU/mL (0.47-4.68)
== END ==
PROVIDERS: Family Provider Family Medicine; PCP Family Medicine; Referring Provider Family Medicine; Visit Provider Family Medicine
DX: E78.5 Hyperlipidemia, unspecified (principal); E11.9 Type 2 diabetes mellitus without complications; I10 Essential (primary) hypertension
CPT/HCPCS: 36415; 80053; 80061; 83036; 84443

== ENCOUNTER → 2024-06-10 16:45 | Outpatient (CLI) | payer OTHER, SELFPAY ==
[2024-06-10 18:49] LABS: Free T4, Direct Thyroxine 1.17 ng/dL (0.78-2.19)
[2024-06-10 19:03] LABS: Thyroid Stimulating Hormone 1.81 uIU/mL (0.47-4.68)
== END ==
LOC: LAB 16:46
PROVIDERS: Family Provider Family Medicine; PCP Family Medicine; Referring Provider Family Medicine; Visit Provider Family Medicine
DX: E11.9 Type 2 diabetes mellitus without complications (principal); I10 Essential (primary) hypertension; E83.52 Hypercalcemia
CPT/HCPCS: 36415; 82310; 83970; 84439; 84443

== ENCOUNTER → 2024-08-13 15:54 | Outpatient (CLI) | payer OTHER, SELFPAY ==
--- NOTE | 2024-08-13 15:54 | DI.MG.S_ITS ---
BILATERAL DIGITAL SCREENING MAMMOGRAM 3D/2D WITH CAD: 08/13/2024 CLINICAL: Routine screening. Comparison is made to exams dated: 08/08/2023 mammogram, 08/08/2022 mammogram, and 08/04/2021 mammogram - [facility]. There are scattered areas of fibroglandular density (category b / 25%-50% glandular tissue). Current study was also evaluated with a Computer Aided Detection (CAD) system. No significant masses, calcifications, or other findings are seen in either breast. There has been no significant interval change. IMPRESSION: NEGATIVE There is no mammographic evidence of malignancy. A 1 year screening mammogram is recommended. Based on the Tyrer Cuzick model (a risk assessment model) the patient's lifetime risk is 9.5% and her 10 year risk is 1.6%. According to the ACR, ACS, and NCCN guidelines, an annual breast MRI exam along with mammogram is recommended if the patient's lifetime risk is 20% or greater. This exam was interpreted at Station ID: [id number]. NOTE: For mammograms, a report in lay terms will be sent to the patient. Approximately 15% of breast malignancies will not be visualized mammographically. In the management of a palpable breast mass, a negative mammogram must not discourage biopsy of a clinically suspicious lesion. Electronically Signed By: Herb lopez/daniel:08/14/2024 17:11:44 letter sent: Normal Exam ACR BI-RADS Category 1: Negative
== END ==
PROVIDERS: Family Provider Family Medicine; PCP Family Medicine; Referring Provider Family Medicine; Visit Provider Family Medicine
DX: Z12.31 Encounter for screening mammogram for malignant neoplasm of breast (principal)
CPT/HCPCS: 77063; 77067

== ENCOUNTER → 2024-12-29 15:33 | Outpatient (CLI) | payer OTHER, SELFPAY ==
[2024-12-29 16:57] LABS: Add Manual Diff / Slide Review NO; Basophils Absolute Auto 0 /uL (0-100); Basophils Percent Auto 0.4 % (0-2); Eosinophils Absolute Auto 100 /uL (0-450); Hematocrit 41.3 % (36-46); Lymphocytes Absolute Auto 2800 /uL (1100-4500); Lymphocytes Percent Auto 35.3 % (25-40); Mean Corpuscular Hemoglobin 31.1 PG (26-34); Mean Corpuscular Volume 91.4 fL (80-100); Monocytes Absolute Auto 500 /uL (0-900); Neutrophils Absolute Auto 4400 /uL (1500-7000); Neutrophils Percent Auto 56.3 % (50-75); Platelet Count 246 X10^3/uL (150-400); Red Blood Cell Count 4.51 X10^6/uL (4.0-5.2); Red Cell Distribution Width 12.9 % (11.6-14.8); White Blood Cell Count 7.8 X10^3/uL (4.5-11.0)
[2024-12-29 17:11] LABS: Alanine Aminotransferase 31 IU/L (<35); Albumin 4.6 g/dL (3.5-5.0); Albumin Globulin Ratio 1.4 (1.0-2.8); Alkaline Phosphatase 76 U/L (38-126); Aspartate Aminotransferase 28 IU/L (14-36); BUN Creatinine Ratio 23.2 (6-22); Bilirubin Total 1.3 mg/dL (0.2-1.3); Blood Urea Nitrogen 16 mg/dL (7-17); Calcium 10.6 mg/dL (8.4-10.2); Carbon Dioxide 22 mmol/L (22-32); Chloride 103 mmol/L (98-107); Cholesterol 168 mg/dL (140-199); Estimated Glomerular Filt Rate > 60 mL/min (>60); Globulin 3.4 g/dL (1.7-4.1); Glucose 91 mg/dL (70-100); HDL Cholesterol 51 mg/dL (40-60); HEMOLYSIS < 15 (0-50); LDL Cholesterol Calculated 95 mg/dL (<100); Potassium 3.7 mmol/L (3.4-5.1); Sodium 136 mmol/L (137-145); Triglycerides 108 mg/dL (35-150)
[2024-12-29 17:13] LABS: Hemoglobin A1C% w Est Avg Glu 5.2 % (4.0-6.0)
[2024-12-29 17:32] LABS: Free T4, Direct Thyroxine 1.34 ng/dL (0.78-2.19)
[2024-12-29 17:46] LABS: Thyroid Stimulating Hormone 1.48 uIU/mL (0.47-4.68)
== END ==
PROVIDERS: Family Provider Family Medicine; PCP Family Medicine; Referring Provider Family Medicine; Visit Provider Family Medicine
DX: I10 Essential (primary) hypertension (principal); E11.9 Type 2 diabetes mellitus without complications; F41.9 Anxiety disorder, unspecified; E78.2 Mixed hyperlipidemia; K21.9 Gastro-esophageal reflux disease without esophagitis
CPT/HCPCS: 36415; 80053; 80061; 83036; 84439; 84443; 85025

== ENCOUNTER → 2025-05-16 11:13 | Outpatient (CLI) | payer OTHER, SELFPAY ==
[2025-05-16 12:56] LABS: TSH w/ Reflex to FT4 1.56 uIU/mL (0.47-4.68)
[2025-05-16 12:58] LABS: Hemoglobin A1C% w Est Avg Glu 5.4 % (4.0-6.0)
== END ==
PROVIDERS: Family Provider Family Medicine; PCP Family Medicine; Referring Provider Family Medicine; Visit Provider Family Medicine
DX: E11.9 Type 2 diabetes mellitus without complications (principal)
CPT/HCPCS: 36415; 83036; 84443